=== PATIENT | female | born 1990 | race Caucasian/White ===

== ENCOUNTER → 2025-07-23 00:16 | Outpatient (CLI) | payer BC, SELFPAY ==
--- NOTE | 2025-07-23 | DI.MRI_ITS ---
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 TECHNIQUE: Multiplanar multisequence MRI of the Lumbar spine was performed. COMPARISON: MR MRI - LUMBAR SPINE WO CONTRAST from 04/29/2014 FINDINGS: Conus medullaris is at normal level. There is no evidence of conus mass nor subjacent clumping of intrathecal nerve roots to suggest arachnoiditis. The distal thecal sac appears unremarkable.There is no evidence of Tarlov intrasacral cysts nor other significant findings within the sacral canal Bones:There are no fractures nor ominous osseous lesions in the lumbar vertebral bodies and visualized sacrum. With respect to the individual levels... T12-L1: Unremarkable L1-2: Normal disc height and signal. No disc herniation nor central canal stenosis.No foraminal stenosis L2-3: Normal disc height and signal. There is very mild posterior central subligamentous annular bulging. There is no significant disc herniation at this level nor canal stenosis and there is no foraminal stenosis. No facet arthropathy. L3-4: Normal disc height. No disc herniation or central canal stenosis.No foraminal stenosis.No facet arthropathy. L4-5: There has been significant disc height loss since the prior MRI scan of 2013, and there are also some Modic type 1 sub endplate marrow edema changes posteriorly at this disc space. There is no loss of endplate delineation. The size of the previously described central disc herniation at this level has significantly decreased.. It has now been replaced by broad symmetrical annular bulging, with this annular bulging extending into the floor of both exiting neural foramina. There is, however, only mild bilateral foraminal stenosis which is related to the disc space height loss and the annular bulging. There are no significant degenerative changes in the facet joints at this level (which would add to the foraminal stenosis). Indeed, there is still an intact fat plane signal around the exiting nerve roots bilaterally at this level. L5-S1: Normal disc height and signal. No disc herniation nor canal stenosis. No facet arthropathy. No foraminal stenosis. Soft tissues: paraspinal soft tissues appear unremarkable. IMPRESSION: 1. Compared to the prior MRI scan of April 2014 the size of the L4-5 central posterior disc protrusion has decreased. However, there has been progressive loss of disc height at this level. There is only mild symmetrical annular bulging posteriorly and there is also annular bulging into the floor both exiting neural foramina but with only mild bilateral foraminal stenosis. There are Modic type 1 sub endplate marrow edema changes on both sides of the L4-5 disc space. There is no significant facet arthropathy at the L4-5 level nor elsewhere in the lumbosacral spinal column. 2. Very mild probably insignificant central annular bulging at L2-3 level. No canal stenosis nor foraminal stenosis at this level. DATA REPOSITORY:
== END ==
LOC: DI 00:17
PROVIDERS: PCP Family Medicine; Visit Provider Family Medicine
DX: M54.50 Low back pain, unspecified (principal); G89.29 Other chronic pain
CPT/HCPCS: 72148